=== PATIENT | female | born 1985 | race Caucasian/White ===

== ENCOUNTER 2019-12-15 06:41 | Inpatient (IN) | payer OTHER ==
[2019-12-15] VITALS (48 sets, daily range): BP systolic 101–174; BP diastolic 52–114; PULSE 61–123; TEMP 97.5–98.9
[~2019-12-15] VITALS: Ht 172.7 cm; Wt 100.9 kg
[~2019-12-15 06:41] MED LIST: MOTRIN 600600 MG/TAB PO; PERCOCET 325 MG1 TA2 PO; PRENATAL1 TA2 PO; PRILOSEC 20MG20 MG PO
--- NOTE | 2019-12-15 10:15 | NUR ---
Patient ambulatory to unit accompanied by spouse for scheduled pitocin induction of labor. Patient oriented to room and call light, resting in bed with clean gown on. Patient denies leaking of fluid, vaginal bleeding and states baby has been active. FHR and contraction monitors placed and explained. Consents signed. Assessment completed. IV started and labs collected from IV site. LR and Pen G infusing. 1045: Pitocin started. SVE /-3. Patient resting in bed, call light in reach.
[2019-12-15 11:32] LABS: BASO % 0.2 % (0.0-2.0); EOS # 0.1 (0.0-0.7); EOS % 0.7 % (0-4.0); GRAN # 7.2 (1.4-6.5); HEMOGLOBIN 11.8 g/dl (12.5-16.0); LYMPH # 1.7 (1.2-3.4); MEAN CELL VOLUME 90 fl (80.0-100.0); MEAN CORPUSCULAR HEMOGLOBIN 30 pg (27.0-31.0); MEAN CORPUSCULAR HGB CONC 34 g/dl (33.0-37.0); MEAN PLATELET VOLUME 11.1 fl (7.4-10.4); MONO # 0.5 (0.1-0.6); MONO % 4.8 % (1.7-9.3); PLATELET COUNT 167 K/mm3 (130-400); RED BLOOD COUNT 3.93 M/mm3 (4.10-5.30)
[2019-12-15 11:33] LABS: HEMATOCRIT 35.2 % (37.0-47.0)
--- NOTE | 2019-12-15 13:23 | NUR ---
1315: Dr. Webber at nurses station and reviews FHR and contraction pattern. 1323: Dr. Webber at bedside. AROM with moderate amount of clear fluid noted. scalp stimulation noted with SVE and AROM. Per Dr. Webber SVE 2-3//-2. Patient resting in bed.
--- NOTE | 2019-12-15 14:30 | NUR ---
Patient state she is feeling pain during contractions and would like an epidural. Sara Perez CRNA called to patient room for epidural placement.
--- NOTE | 2019-12-15 14:55 | NUR ---
1455: Patient repositions self and sitting at side of bed for epidural placement. Sara Perez CRNA in room and epidural procedure explained. Epidural test dose at 1504. NO reaction to test dose. Patient tolerates epidural placement well. Patient repositioned in bed, resting wedged left. See anesthesia records.
--- NOTE | 2019-12-15 17:26 | NUR ---
1726: Dr. Webber at nurses station and reviews FHR and contraction pattern. SVE by Dr. Webber . IUPC placed at 1729. Recurrent FHR variable decelerations down to 60-70 bpm. Pitocin off at 1731, patient repositioned from right lateral to left lateral. Oxygen on via face mask at 1735. LR bolus infusing. FHR scalp electrode placed at 1735. Dr. Webber remains in room.
--- NOTE | 2019-12-15 18:07 | NUR ---
Dr. Webber remains at nurses station watching FHR and contraction pattern. Verbal order to restart pitocin at 10mu/min. 1805: Pitocin on and rate at 10ml/hr.
--- NOTE | 2019-12-15 18:15 | NUR ---
Dr. Webber in room at 1810, SVE 8/-1. Pitocin off due to recurrent FHR variable declerations down to 70-90 bpm. Bedside report to Wilma Junior RN who will assume care of patient at this time.
--- NOTE | 2019-12-15 18:15 | NUR ---
1814- BEDSIDE REPORT RECEIVED, CARE ASSUMED. PT IN LEFT LATERAL BREATHING THROUGH CONTRACTIONS AND DENIES NEEDS AT THIS TIME. 182- PT HAVING SOME PRESSURE WITH CONTRACTIONS, SVE BY THIS NURSE WITH NO CHANGE. PT DENIES FURTHER NEEDS. DR BENEDICT UPDATED AT DESK. 184- SVE BY THIS NURSE . PT CONTINUES TO BREATH THROUGH PRESSURE, DENIES FURTHER NEEDS. DR BENEDICT UPDATED AT DESK. 1853- SVE BY THIS NURSE /+1. PT FEELING INTENSE PRESSURE. DR BENEDICT UPDATED AT DESK. 1855- DR BENEDICT WANTS PT TO BEGIN PUSHING. CONKLIN CATHETER REMOVED AND PT POSITIONED IN STIRRUPS. DR BENEDICT PERFORMS PERICARE. 1858- PT BEGINS PUSHING SPONTANEOUSLY WITH CONTRACTIONS. 1899- DR BENEDICT DECLARES PT IS COMPLETELY DILATED NOW. 1903- O2 PER MASK ON PT. 1913- SPONTANEOUS VAGINAL DELIVERY OF VIABLE MALE, VIGOROUS, TO MOTHER'S ABDOMEN AND CARE OF NURSERY STAFF. 1915- DR BENEDICT OBTAINS CORD GASES. 1921- SPONTANEOUS DELIVERY OF PLACENTA, EXAMINED BY DR BENEDICT. REPAIR IN PROGRESS. OXYTOCIN INFUSING. 1929- REPAIR COMPLETE. DELIVERY COUNTS COMPLETE AND CORRECT. PERICARE PROVIDED. ICEPACK TO PERINEUM. FEET DOWN FROM FOOTPLATES AND RECOVERY STARTED.
--- NOTE | 2019-12-15 21:45 | NUR ---
2144- IV TO SALINE LOCK, EPIDURAL CATHETER REMOVED WITH BLUE TIP INTACT. PT ASSISTED TO AMBULATE TO BATHROOM. PT ABLE TO VOID 150ML. PT PERFORMS PERICARE. CLEAN GOWN, PAD AND PANTIES PROVIDED. 2199- PT AMBULATES TO ROOM 208 WITHOUT DIFFICULTY. BELONGINGS SENT WITH PT. PT ORIENTED TO ROOM AND CALL LIGHTS. PLAN OF CARE DISCUSSED AND QUESTIONS ANSWERED. PT DENIES FURTHER NEEDS AT THIS TIME.
[2019-12-16 01:58] VITALS: BP 122/73; PULSE 66; TEMP 98
[2019-12-16 09:02] VITALS: BP 127/68; PULSE 84; TEMP 97.7
[2019-12-16 16:27] VITALS: BP 130/77; PULSE 67; TEMP 98
[2019-12-16 19:35] VITALS: BP 122/79; PULSE 74; TEMP 97.9
[2019-12-17 08:08] VITALS: BP 128/66; PULSE 76; TEMP 97.7
--- NOTE | 2019-12-17 10:00 | NUR ---
THIS NURSE TAKES REPORT FROM RANDY Norman RN. ASSUMES PATIENT CARE.
[2019-12-17] MEDS ORDERED: IBU600 MG PO (10:16)
[2019-12-17 16:58] VITALS: BP 116/58; PULSE 68; TEMP 98.1
--- NOTE | 2019-12-17 19:15 | NUR ---
Discharge instructions explained. Questions encouraged and answered. Patient to follow up in 6 weeks with TW. Patient ambulatory off unit with and .
== END 2019-12-17 19:15 | disposition home or self-care (01) | DRG 807 ==
LOC: LDR 06:41 → OB 22:09
PROVIDERS: ADMIT Obstetrics & Gynecology
PROC: 10E0XZZ Delivery of Products of Conception, External Approach (ICD-10-PCS; principal; 2019-12-15)
PROC: 10907ZC Drainage of Amniotic Fluid, Therapeutic from Products of Conception, Via Natural or Artificial Opening (ICD-10-PCS; 2019-12-15)
PROC: 3E033VJ Introduction of Other Hormone into Peripheral Vein, Percutaneous Approach (ICD-10-PCS; 2019-12-15)
DX: O69.81X0 Labor and delivery complicated by cord around neck, without compression, not applicable or unspecified (principal); Z37.0 Single live birth; O70.0 First degree perineal laceration during delivery; Z3A.40 40 weeks gestation of pregnancy
CPT/HCPCS: J2540; J2590; J7120